=== PATIENT | female | born 1995 | race Caucasian/White ===

== ENCOUNTER 2019-10-15 20:38 | Outpatient (CLI) | payer MEDICAID ==
[2019-10-15 21:56] VITALS: BP 117/77
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
== END 2019-10-16 01:15 | disposition home or self-care (01) ==
LOC: TRG 20:38 → APU 20:50 → TRG 10-16 01:15
PROVIDERS: ATTEND Obstetrics & Gynecology
DX: O26.892 Other specified pregnancy related conditions, second trimester (principal); V89.2XXA Person injured in unspecified motor-vehicle accident, traffic, initial encounter; Y93.89 Activity, other specified; Y92.89 Other specified places as the place of occurrence of the external cause; Y99.8 Other external cause status; Z3A.27 27 weeks gestation of pregnancy
CPT/HCPCS: 59025; 76815

== ENCOUNTER 2019-11-28 20:25 | Outpatient (CLI) | payer MEDICAID ==
[2019-11-28 21:03] VITALS: BP 112/70
== END 2019-11-28 21:50 | disposition home or self-care (01) ==
LOC: TRG 20:25 → APU 20:26 → TRG 21:50
PROVIDERS: ATTEND Obstetrics & Gynecology
DX: O42.913 Preterm premature rupture of membranes, unspecified as to length of time between rupture and onset of labor, third trimester (principal); Z3A.34 34 weeks gestation of pregnancy
CPT/HCPCS: 59025

== ENCOUNTER 2019-12-16 17:09 | Outpatient (CLI) | payer MEDICAID ==
[2019-12-16] MEDS ORDERED: LACTATED RINGERS 1,000 ML IV SCH (18:00)
[2019-12-16 18:03] LABS: Bilirubin,Urine NEG (Negative); Blood,Urine MOD (Negative); Color,Urine Yellow (Yellow); Protein,Urine <15 mg/dL mg/dL (Negative); Urobilinogen,Urine < 2.0 mg/dL (<2.0)
[2019-12-16 18:09] LABS: Amphetamine Screen,Urine PRESUMPTIVE NEGATIVE; Benzodiazepines Screen,Urine PRESUMPTIVE NEGATIVE; Cannabinoid Screen,Urine PRESUMPTIVE NEGATIVE; Cocaine Screen,Urine PRESUMPTIVE NEGATIVE; Methadone Screen,Urine PRESUMPTIVE NEGATIVE; Opiate Screen,Urine PRESUMPTIVE NEGATIVE
[2019-12-16 18:11] VITALS: BP 126/73
== END 2019-12-16 19:47 | disposition home or self-care (01) ==
LOC: TRG 17:09 → APU 17:10 → TRG 19:47
PROVIDERS: ATTEND Obstetrics & Gynecology
DX: O26.853 Spotting complicating pregnancy, third trimester (principal); O26.893 Other specified pregnancy related conditions, third trimester; R25.2 Cramp and spasm; Z3A.36 36 weeks gestation of pregnancy
CPT/HCPCS: 59025; 80307; 81001; 87086; 96360; 96361; J7120

== ENCOUNTER 2019-12-27 15:03 | Inpatient (IN) | payer MEDICAID ==
[2019-12-27] MEDS ORDERED: LACTATED RINGERS 1,000 ML ONE (16:08)
[2019-12-27] MEDS ORDERED: MINERAL OIL 30 ML ORAL LIQD PO PRN (16:18)
[2019-12-27] MEDS ORDERED: ePHEDrine SULFATE 50 MG/1 ML INJ IV PRN ×2 (16:18→19:03)
[2019-12-27] MEDS ORDERED: fentaNYL 100 MCG/2 ML INJ IV PRN (16:18)
[2019-12-27] MEDS ORDERED: TERBUTALINE 1 MG/1 ML INJ SUB-Q PRN (16:18)
--- NOTE | 2019-12-27 16:26 | History and Physical Report ---
History of Present Illness Date of examination: 12/27/19 Date of admission: 12/27/2019 Chief complaint: Labor History of present illness: 24 year old presents with contractions; complains of contractions for past 2 days. Denies LOF or VB. Patient received care at [facility]; no prenantal records are available. EDC 01/09/2020 per patient report. Patient states fetus had pericardial effusion and EIF (states pericardial effusion resolved but EIF did not). labs were drawn upon admission. Patient presented records after she was admitted and the following information was obtained from these records: She was seeing Dr. Malini Brasher and [facility]. LMP 04/04/2019. EDC 01/09/2020. Problems: alpha thalassemia carrier, history of chlamydia treated, EIF (normal echo). labs: A+, antibody screen negative, RPR nonreactive, HIV negative, hepatitis B surface antigen negative, gonorrhea negative, chlamydia negative, rubella immune, 1 hour sugar test 100, AFP negative, GBS negative, hemoglobin electrophoresis AA, pap smear negative. Past History Past Medical History: other (obesity) Past Surgical History: no surgical history [facility] ATT[facility]NEY History: denies: chlamydia, gonorrhea, hepatitis B, hepatitis C, herpes, HIV, syphilis, trichomonas Family/Genetic History: diabetes Social history: full code. denies: smoking, alcohol abuse, prescription drug abuse, IV drug use - Obstetrical History Expected Date of Delivery: 01/09/20 Actual Gestation: 38 Week(s) 1 Day(s) : 2 Para: 0 Hx # Term Pregnancies: 0 Number of Pregnancies: 0 Spontaneous Abortions: 0 Induced : 1 Number of Living Children: 0 Medications and Allergies Allergies Allergy/AdvReac Type Severity Reaction Status Date / Time No Known Allergies Allergy Verified 12/27/19 15:34 Home Medications Medication Instructions Recorded Confirmed Last Taken Type Iron 1 tab PO QDAY 10/15/19 12/27/19 10/15/19 10:00 History Vitamin 1 tab PO QDAY 10/15/19 12/27/19 12/27/19 04:00 History metroNIDAZOLE VAGINAL 0.75% gel 1 applic VG HS 12/27/19 12/27/19 12/26/19 21:00 History Active Meds: Active Medications Ephedrine Sulfate (Ephedrine Sulfate) 10 mg IV Q2M PRN PRN Reason: Hypotension Fentanyl (Sublimaze) 100 mcg IV Q2H PRN PRN Reason: Pain,Severe (7-10) LABOR PAIN Oxytocin/Sodium Chloride (Pitocin/Ns 30 Unit/500ml) 30 units in 500 mls @ 2 mls/hr IV TITR FRED; Protocol Lactated Ringer's (Lactated Ringers) 1,000 mls @ 125 mls/hr IV DIRECT FRED Oxytocin/Sodium Chloride (Pitocin/Ns 30 Unit/500ml) 30 units in 500 mls @ 40 mls/hr IV TITR FRED; Protocol Ampicillin Sodium (Ampicillin/Ns 2 Gm/100 Ml) 2 gm in 100 mls @ 100 mls/hr IV ONCE ONE; Protocol Stop: 12/27/19 17:29 Ampicillin Sodium (Ampicillin/Ns 1 Gm/50 Ml) 1 gm in 50 mls @ 100 mls/hr IV Q4H FRED; Protocol Lidocaine (Xylocaine 2%) 20 ml INFILTRATI ONCE ONE Stop: 12/27/19 16:19 Mineral Oil (Mineral Oil) 30 ml PO QHS PRN PRN Reason: Constipation Terbutaline Sulfate (Brethine) 0.25 mg SUB-Q ONCE PRN PRN Reason: Hyperstimulation/Hypertonicity Review of Systems All systems: negative (contractions) - Vital Signs Vital signs: Vital Signs Pulse BP Pulse Ox 90 123/81 98 12/27/19 15:29 12/27/19 15:29 12/27/19 15:29 Temp Pulse Resp BP Pulse Ox 99.0 F 83 20 123/81 97 12/27/19 15:30 12/27/19 16:19 12/27/19 15:30 12/27/19 15:30 12/27/19 16:19 - Physical Exam Abdomen: Positive: normal appearance, soft. Negative: distention, tenderness, guarding, rigidity Genitourinary (Female): Positive: normal external genitalia, normal perenium. Negative: perineal/vulvar lesions (no lesions seen on careful exam with bright light upon admission) Vagina: Positive: normal moisture Uterus: Positive: enlarged. Negative: tender Anus/Rectum: Positive: normal perianal skin Extremities: Positive: normal, edema (pedal edema bilaterally). Negative: tend erness - Obstetrical Cervical Dilatation: 5 Cervical Effacement Percentage: 80 station: -2 Uterine Contraction Pattern: Regular Uterine Contraction Intensity: Moderate Results All other labs normal. Assessment and Plan A: at 38 weeks, 1 day gestation. Active labor. P: Admit. EFM. Epidural if desired.
[2019-12-27] MEDS ORDERED: AMPICILLIN/NS 2 GM/100 ML 2 GM/100 ML BAG IV ONE (16:30)
[2019-12-27 16:46] LABS: Bacteria,Urine 1+ /HPF (Negative); Bilirubin,Urine NEG (Negative); Blood,Urine MOD (Negative); Color,Urine Yellow (Yellow); Mucus,Urine FEW /HPF; Urobilinogen,Urine < 2.0 mg/dL (<2.0)
[2019-12-27 16:47] LABS: Amphetamine Screen,Urine PRESUMPTIVE NEGATIVE; Benzodiazepines Screen,Urine PRESUMPTIVE NEGATIVE; Cannabinoid Screen,Urine PRESUMPTIVE NEGATIVE; Cocaine Screen,Urine PRESUMPTIVE NEGATIVE; Methadone Screen,Urine PRESUMPTIVE NEGATIVE; Opiate Screen,Urine PRESUMPTIVE NEGATIVE
[2019-12-27] MEDS ORDERED: LIDOCAINE (2%) 20 MG/1 ML VIAL 20 ML MDV INFILTRATI ONE ×2 (17:00→19:39)
[2019-12-27] MEDS ORDERED: LACTATED RINGERS 1,000 ML IV SCH (17:00)
[2019-12-27] MEDS ORDERED: OXYTOCIN DRIP 30 UNITS/500 ML BAG IV SCH ×2 (17:00)
[2019-12-27 17:33] LABS: Hematocrit 35.8 % (30.3-42.9); Mean Corpuscular HGB Conc 34 % (30-34); Mean Corpuscular Volume 84 fl (79-97); Platelet Count 193 K/mm3 (140-440); Red Blood Count 4.25 M/mm3 (3.65-5.03); Red Cell Distribution Width 12.7 % (13.2-15.2)
[2019-12-27] MEDS ORDERED: fentaNYL-BUPIV 2 MCG/ML-0.125% 200 MCG/100 ML BAG EPIDURAL ONE (17:53)
[2019-12-27 17:59] LABS: Hepatitis C Virus Antibody Non-Reactive (NonReactive)
[2019-12-27] MEDS ORDERED: DEXMEDETOMIDINE 200 MCG/2 ML VIAL IV ONE (18:21)
[2019-12-27] MEDS ORDERED: NALOXONE 2 MG/2 ML INJ IV PRN (19:03)
--- NOTE | 2019-12-27 19:06 | Anesthesia Consultation ---
Anesthesia Consult and Med Hx Date of service: 12/27/19 - Airway Anesthetic Teeth Evaluation: Good ROM Head & Neck: Adequate Mental/Hyoid Distance: Adequate Mallampati Class: Class II Intubation Access Assessment: Possibly Difficult - Pulmonary Exam CTA: Yes - Cardiac Exam Cardiac Exam: RRR - Pre-Operative Health Status ASA Pre-Surgery Classification: ASA2 Proposed Anesthetic Plan: Epidural - Pulmonary Hx Smoking: No Hx Asthma: No Hx Respiratory Symptoms: No SOB: No COPD: No Home Oxygen Therapy: No Hx Pneumonia: No Hx Sleep Apnea: No - Cardiovascular System Hx Hypertension: No Hx Coronary Artery Disease: No Hx Heart Attack/AMI: No Hx Angina: No Hx Percutaneous Transluminal Coronary Angioplasty (PTCA): No Hx Cardia Arrhythmia: No Hx Pacemaker: No Hx Internal Defibrillator: No Hx Valvular Heart Disease: No Hx Heart Murmur: No Hx Peripheral Vascular Disease: No - Central Nervous System Hx Neuromuscular Disorder: No Hx Seizures: No CVA: No Hx Back Pain: No Hx Psychiatric Problems: No - Gastrointestinal Hx Ulcer: No Hx Gastroesophageal Reflux Disease: No - Endocrine Hx Renal Disease: No Hx End Stage Renal Disease: No Hx Cirrhosis: No Hx Liver Disease: No Hx Insulin Dependent Diabetes: No Hx Hypothyroidism: No Hx Hyperthyroidism: No - Hematic Hx Anemia: Yes Hx Sickle Cell Disease: No - Other Systems Hx Alcohol Use: No Hx Substance Use: No Hx Cancer: No Hx Obesity: Yes
[2019-12-27] MEDS ORDERED: fentaNYL-BUPIV 2 MCG/ML-0.125% 200 MCG/100 ML BAG EPIDURAL SCH (20:00)
--- NOTE | 2019-12-27 20:06 | Progress Note ---
Labor Epidural - Labor Epidural Start Time: 18:29 Stop Time: 18:46 Performed by:: CHUN GRAVES Procedure: Patient is requesting a laboring epidural for laboring pain. Patient IDed, H&P reviewed, all questions and concerns were answered, and consent was signed. Timeout was performed at bedside. Patient in sitting position. Sterile prep and drape was performed. [5] ml of 1% lidocaine skin wheal at L[4]- L [5]. 18- gauge Tuohy epidural needle was advanced to loss of resistance with air technique to 7cm, 27g spinal needle with clear CSF, however patient c/o right side paresthesia. Spinal and Tuohy needle remaved. 2nd attempt, loss Of resistance with air to 7cm, negative paresthesia, negative CSF, negative blood. Epidural catheter advanced to [11] centimeters. [NEGATIVE] Aspiration [NEGATIVE] test dose. Sterile dressing applied. Patient tolerated procedure.
[2019-12-27] MEDS ORDERED: AMPICILLIN/NS 1 GM/50 ML 1 GM/50 ML BAG IV SCH (20:30)
[2019-12-27] MEDS ORDERED: WITCH HAZEL/ GLYCERIN PAD TP PRN (21:59)
[2019-12-27] MEDS ORDERED: HYDROcodone/ACETAMINOPHEN 5-325 MG TAB PO PRN (21:59)
--- NOTE | 2019-12-27 22:08 | Procedure Note ---
OB Delivery Note - Delivery Date of Delivery: 12/27/19 Surgeon: JANELLE MONTAGUE Estimated blood loss: 200cc - Vaginal Delivery presentation: vertex Delivery position: OP Intrapartum events: none Delivery induction: none Delivery augmentation: rupture of membranes Delivery monitor: external FHT, external uterine Route of delivery: Delivery placenta: spontaneous Delivery cord: 3 umbilical vessels Episiotomy: none Delivery laceration: none Anesthesia: epidural Delivery comments: Spontaneous vaginal delivery at 21:44 of liveborn female weighing 6 lb. 4 oz. over intact perinuem with apgars of 8/9. Atraumatic delivery of baby; no nuchal cord. Baby placed skin to skin with mom after delivery. Spontaneous cry and respirations. Baby dried with warm blankets and suctioned with bulb syringe. 3 vessel cord double clamped and cut (delayed clamping). Spontaneous delivery of intact placenta and membranes by scherer mechanism. EBL 200 cc. Pitocin to IV fluids after delivery of placenta. Fundus firm and midline. No lacerations noted. Sponge count correct. Mother and baby stable.
[2019-12-28] MEDS: IBUPROFEN 600 MG TAB PO SCH ×3 (06:09→17:50)
--- NOTE | 2019-12-28 07:00 | Post Anesthesia Evaluation ---
- Post Anesthesia Evaluation Patient Participated: Yes Airway Patent: Yes Stable Respiratory Function: Yes Nausea/Vomiting: No Temp > 96.8F: Yes Pain Manageable: Yes Adequeate Hydration: Yes Anesthesia Complications: No Block Receding Appropriately: Yes Patient on Ventilator: No
[2019-12-28 10:13] LABS: Hematocrit 28.9 % (30.3-42.9); Hemoglobin 9.7 gm/dl (10.1-14.3)
--- NOTE | 2019-12-28 11:46 | Progress Note ---
Assessment and Plan A: Day 1 Stable P: Follow routine orders. D/c in the am. Subjective - Subjective Date of service: 12/28/19 Principal diagnosis: IUP at term delivered Patient reports: appetite normal, voiding normally, pain well controlled, flatus, ambulating normally : doing well, bottle feeding (and ) Objective - Vital Signs Latest vital signs: Vital Signs Temp Pulse Resp BP BP Pulse Ox 12/28/19 08:55 98.4 F 75 18 105/54 12/28/19 08:29 20 12/28/19 05:27 98.7 F 91 H 18 102/62 98 12/28/19 01:20 99.2 F 90 18 119/76 99 12/28/19 00:46 102 H 115/64 99 12/28/19 00:41 81 120/66 99 12/28/19 00:36 79 119/61 100 12/28/19 00:31 80 116/56 100 12/28/19 00:26 74 115/61 99 12/28/19 00:21 79 115/61 100 12/28/19 00:16 84 115/61 99 12/28/19 00:11 79 116/62 100 12/28/19 00:06 84 114/60 100 12/28/19 00:01 81 117/61 98 12/27/19 23:56 83 113/61 98 12/27/19 23:51 76 116/56 100 12/27/19 23:46 80 116/60 100 12/27/19 23:41 88 123/65 99 12/27/19 23:37 81 118/59 12/27/19 23:36 82 99 12/27/19 23:31 70 117/59 100 12/27/19 23:26 65 120/57 100 12/27/19 23:21 80 128/62 99 12/27/19 23:17 85 118/59 12/27/19 23:16 75 99 12/27/19 23:11 66 121/61 97 12/27/19 23:06 68 125/60 100 12/27/19 23:01 76 125/61 98 12/27/19 22:56 73 118/60 97 12/27/19 22:53 80 91 12/27/19 22:52 64 110/59 12/27/19 22:51 69 98 12/27/19 22:46 74 130/53 97 12/27/19 22:41 70 121/59 98 12/27/19 22:36 65 126/76 99 12/27/19 22:31 71 115/62 99 12/27/19 22:26 78 117/60 98 12/27/19 22:21 77 118/64 99 12/27/19 22:16 79 109/67 99 12/27/19 22:11 79 125/52 100 12/27/19 22:06 81 125/60 99 12/27/19 22:01 85 125/68 99 12/27/19 21:57 86 137/59 12/27/19 21:56 89 100 12/27/19 21:52 120 H 151/72 12/27/19 21:51 99.2 F 103 H 18 151/72 99 12/27/19 21:46 103 H 105/53 12/27/19 21:42 116 H 140/77 12/27/19 21:38 149 H 98 12/27/19 21:37 120 H 121/81 12/27/19 21:33 137 H 97 12/27/19 21:31 141 H 132/73 12/27/19 21:28 102 H 125/66 98 12/27/19 21:27 80 89 12/27/19 21:23 98 H 98 12/27/19 21:18 110 H 96 12/27/19 21:17 110 H 117/67 12/27/19 21:13 84 99 12/27/19 21:11 63 100/54 12/27/19 21:08 61 98 12/27/19 21:07 61 98/53 12/27/19 21:04 18 12/27/19 21:03 63 98 12/27/19 21:01 60 112/59 12/27/19 20:58 65 99 12/27/19 20:56 71 111/59 12/27/19 20:53 62 110/52 99 12/27/19 20:48 61 97 12/27/19 20:46 68 107/58 12/27/19 20:43 66 98 12/27/19 20:41 67 109/64 12/27/19 20:38 69 99 12/27/19 20:37 79 110/71 12/27/19 20:33 68 98 12/27/19 20:31 67 109/59 12/27/19 20:28 72 100 12/27/19 20:27 67 111/55 12/27/19 20:23 79 100 12/27/19 20:22 63 108/64 12/27/19 20:18 70 100 12/27/19 20:13 88 100 12/27/19 20:08 78 99 12/27/19 20:03 70 99 12/27/19 20:01 78 113/54 12/27/19 19:58 73 100 12/27/19 19:57 200 H 114/69 12/27/19 19:53 74 120/59 99 12/27/19 19:48 72 100 12/27/19 19:46 74 110/60 12/27/19 19:44 71 110/69 12/27/19 19:43 71 100 12/27/19 19:38 80 100 12/27/19 19:33 78 100 12/27/19 19:32 83 123/64 12/27/19 19:28 93 H 99 12/27/19 19:23 83 100 12/27/19 19:21 84 115/54 12/27/19 19:18 78 100 12/27/19 19:16 72 117/63 12/27/19 19:15 98.7 F 12/27/19 19:14 79 99 12/27/19 19:11 200 H 113/87 12/27/19 19:08 83 99 12/27/19 19:04 82 99 12/27/19 18:59 92 H 99 12/27/19 18:57 81 125/57 12/27/19 18:53 101 H 100 12/27/19 18:52 105/77 12/27/19 18:48 78 99 12/27/19 18:46 65 138/79 12/27/19 18:43 76 99 12/27/19 18:39 89 99 12/27/19 18:36 71 138/76 12/27/19 18:34 73 99 12/27/19 18:28 105 H 98 12/27/19 18:23 98 12/27/19 18:05 68 110/55 12/27/19 17:30 97.6 F 16 12/27/19 17:07 84 142/71 12/27/19 16:58 80 155/99 12/27/19 16:19 83 97 12/27/19 16:14 85 99 12/27/19 16:09 83 98 12/27/19 16:04 75 98 12/27/19 15:59 79 98 12/27/19 15:54 81 97 12/27/19 15:49 84 99 12/27/19 15:44 78 98 12/27/19 15:39 75 99 12/27/19 15:34 84 99 12/27/19 15:30 99.0 F 90 20 123/81 98 12/27/19 15:29 90 123/81 98 Intake and Output 12/27/19 12/28/19 12/28/19 22:59 06:59 14:59 Intake Total 240 320 Output Total 307 1200 Balance -307 -960 320 Intake: Oral 320 Intake, Free Water 240 Output: Urine 300 1200 Self-Catheterization 400 Uretheral (Victor) 300 Void 800 Emesis 7 Other: Total, Intake Amount 320 Total, Output Amount 2 200 # Voids Void 1 1 Weight 88.904 kg - Exam Breasts: Present: normal Cardiovascular: Present: Regular rate, Normal S1, Normal S2 Lungs: Present: Clear to auscultation, Normal air movement Abdomen: Present: normal appearance, soft, normal bowel sounds Uterus: Present: normal, firm, fundal height below umbilicus Extremities: Present: normal - Labs Labs: Abnormal lab results 12/27/19 12/28/19 Range/Units 17:07 09:33 WBC 11.2 H (4.5-11.0) K/mm3 Hgb 9.7 L (10.1-14.3) gm/dl Hct 28.9 L D (30.3-42.9) % RDW 12.7 L (13.2-15.2) %
--- NOTE | 2019-12-28 11:48 | Discharge Summary ---
Providers - Providers Date of Admission: 12/27/19 15:04 Date of discharge: 12/29/19 Attending physician: BEBE CHEN MD Primary care physician: BEBE CHEN MD Hospitalization Reason for admission: IUP at term Delivery: Episiotomy: none Laceration: none Other procedures: none complications: none Discharge diagnosis: IUP at term delivered baby: female Condition at discharge: Good Disposition: DC-01 TO HOME OR SELFCARE Plan - Provider Discharge Summary Activity: routine, no sex for 6 weeks, no heavy lifting 4 weeks, no strenuous exercise Diet: routine Instructions: routine Additional instructions: [] Smoking cessation referral if applicable(refer to patient education folder for contact #) [] Refer to [facility]'s [facility] Booklet Call your doctor immediately for: * Fever > 100.5 * Heavy vaginal bleeding ( >1 pad per hour) * Severe persistent headache * Shortness of breath * Reddened, hot, painful area to leg or breast * Drainage or odor from incision. * Keep incision clean and dry at all times and follow doctor's instructions regarding bathing/showering - Follow up plan Follow up: BEBE CHEN MD [Primary Care Provider] - 6 Weeks
[2019-12-29] MEDS: IBUPROFEN 600 MG TAB PO SCH ×2 (00:02→05:30)
[2019-12-29 17:54] VITALS: BP 124/79
== END 2019-12-29 18:02 | disposition home or self-care (01) | DRG 775 ==
LOC: TRG 15:03 → APU 15:03 → LD 15:04 → TRG 16:00 → OB 12-28 01:15
PROVIDERS: ADMIT Obstetrics & Gynecology; ATTEND Obstetrics & Gynecology
PROC: 10E0XZZ Delivery of Products of Conception, External Approach (ICD-10-PCS; principal; 2019-12-27)
PROC: 3E0R3BZ Introduction of Anesthetic Agent into Spinal Canal, Percutaneous Approach (ICD-10-PCS; 2019-12-27)
PROC: 00HU33Z Insertion of Infusion Device into Spinal Canal, Percutaneous Approach (ICD-10-PCS; 2019-12-27)
DX: O99.214 Obesity complicating childbirth (principal); Z37.0 Single live birth; Z3A.38 38 weeks gestation of pregnancy; E66.9 Obesity, unspecified; Z20.828 Contact with and (suspected) exposure to other viral communicable diseases; O99.02 Anemia complicating childbirth; D64.9 Anemia, unspecified
CPT/HCPCS: 36415; 80307; 81001; 85014; 85018; 85027; 86592; 86706; 86803; 86850; 86900; 86901; 87806; 96360; G0378; J7120; U0003

== ENCOUNTER 2019-12-31 23:33 | Observation (INO) | payer MEDICAID ==
--- NOTE | 2020-01-01 00:38 | Emergency Department Report ---
ED Abdominal Pain HPI - General Chief Complaint: Fever Stated Complaint: VAGINAL BLEEDING/POST DILIVERY 4DAYS AGO PUI?: No Time Seen by Provider: 01/01/20 00:18 Source: patient Mode of arrival: Ambulatory Limitations: No Limitations - History of Present Illness Initial Comments: Marques is a 24-year-old female that presents emergency room with complaints of lower abdominal pain, heavy vaginal bleeding and fever. Patient states that her symptoms started today. Patient states that her symptoms are worsening. Patient states that her vaginal bleeding has increased. Patient states that she is passing large clots. Patient states she had a baby 4 days ago. Patient states she is breast-feeding. Patient denies breast pain. Patient denies vaginal bleeding. Patient states she is not sexually active. Patient denies vaginal discharge. Patient denies recent travel. Patient denies recent international travel. Patient denies exposure to the novel coronavirus. Patient denies sick contacts. Patient denies cough. Patient denies diarrhea. Patient denies coming in contact with anybody with symptoms of the novel coronavirus. MD Complaint: abdominal pain -: Sudden Location: LLQ, RLQ, suprapubic Radiation: none Migration to: no migration Severity: severe Severity scale (0 -10): 10 Quality: stabbing Consistency: constant Improves With: rest Worsens With: movement Context: recent surgery/procedure Associated Symptoms: denies: nausea, vomiting, diarrhea, fever, chills, constipation, dysuria, hematemesis, hematochezia, melena, hematuria, syncope - Related Data Home Medications Medication Instructions Recorded Confirmed Last Taken Iron 1 tab PO QDAY 10/15/19 12/27/19 10/15/19 10:00 Vitamin 1 tab PO QDAY 10/15/19 12/27/19 12/27/19 04:00 metroNIDAZOLE VAGINAL 0.75% gel 1 applic VG HS 12/27/19 12/27/19 12/26/19 21:00 Allergies Allergy/AdvReac Type Severity Reaction Status Date / Time No Known Allergies Allergy Verified 12/27/19 15:34 ED Review of Systems ROS: Stated complaint: VAGINAL BLEEDING/POST DILIVERY 4DAYS AGO Other details as noted in HPI Constitutional: denies: chills, fever Eyes: denies: eye pain, eye discharge, vision change ENT: denies: ear pain, throat pain Respiratory: denies: cough, shortness of breath, wheezing Cardiovascular: denies: chest pain, palpitations Endocrine: no symptoms reported Gastrointestinal: abdominal pain. denies: nausea, diarrhea Genitourinary: as per HPI. denies: urgency, dysuria, discharge Musculoskeletal: denies: back pain, joint swelling, arthralgia Skin: denies: rash, lesions Neurological: denies: headache, weakness, paresthesias Psychiatric: denies: anxiety, depression Hematological/Lymphatic: denies: easy bleeding, easy bruising ED Past Medical Hx - Past Medical History Previous Medical History?: Yes Hx Hypertension: No Hx Heart Attack/AMI: No Hx Diabetes: No Hx Deep Vein Thrombosis: No Hx Liver Disease: No Hx Renal Disease: No Hx Sickle Cell Disease: No Hx Seizures: No Hx Asthma: No Hx COPD: No Hx HIV: No Additional medical history: Anemia - Surgical History Past Surgical History?: No Hx Pacemaker: No Hx Internal Defibrillator: No - Family History Family history: no significant - Social History Smoking Status: Never Smoker Substance Use Type: None - Medications Home Medications: Home Medications Medication Instructions Recorded Confirmed Last Taken Type Iron 1 tab PO QDAY 10/15/19 12/27/19 10/15/19 10:00 History Vitamin 1 tab PO QDAY 10/15/19 12/27/19 12/27/19 04:00 History metroNIDAZOLE VAGINAL 0.75% gel 1 applic VG HS 12/27/19 12/27/19 12/26/19 21:00 History ED Physical Exam - General Limitations: No Limitations General appearance: alert, in no apparent distress - Head Head exam: Present: atraumatic, normocephalic - Eye Eye exam: Present: normal appearance - ENT ENT exam: Present: mucous membranes moist - Neck Neck exam: Present: normal inspection - Respiratory Respiratory exam: Present: normal lung sounds bilaterally. Absent: respiratory distress - Cardiovascular Cardiovascular Exam: Present: regular rate, normal rhythm. Absent: systolic murmur, diastolic murmur, rubs, gallop - GI/Abdominal GI/Abdominal exam: Present: soft, tenderness (Bilateral lower quadrant tenderness.), normal bowel sounds - Extremities Exam Extremities exam: Present: normal inspection - Back Exam Back exam: Present: normal inspection - Neurological Exam Neurological exam: Present: alert, oriented X3 - Psychiatric Psychiatric exam: Present: normal affect, normal mood - Skin Skin exam: Present: warm, dry, intact, normal color. Absent: rash ED Course Vital Signs 01/01/20 01/01/20 00:01 03:17 Temperature 101.4 F H Pulse Rate 107 H Respiratory 16 18 Rate Blood Pressure 141/83 O2 Sat by Pulse 97 Oximetry - Reevaluation(s) Reevaluation #1: I discussed all results with patient. I discussed plan of care with patient. Patient agrees with plan of care and admission. Patient to be admitted to the ESTHETICIAN service. 01/01/20 01:57 Reevaluation #2: Patient complaining of increased pain. Patient also complaining of nausea. Patient will be given Dilaudid and Zofran. 01/01/20 02:20 - Consultations Consultation #1: I discussed the case with Dr. Carmen, ESTHETICIAN. Dr. Carmen wants patient to be admitted to mother-baby. Bridge orders placed. 01/01/20 01:57 ED Medical Decision Making - Lab Data Result diagrams: 01/01/20 00:40 01/01/20 00:40 - Radiology Data Radiology results: report reviewed Transvaginal pelvic ultrasound with Doppler INDICATION: vaginal bleeding and fever FINDINGS: The uterus is and appearance measuring 15 x 10 x 10 cm. There is a moderate amount of heterogeneous material within the endometrial canal. On the provided Doppler images there may be a small amount of increased Doppler flow. Neither ovary was identified from overlying bowel gas. No large free pelvic fluid appreciated IMPRESSION: Moderate amount of heterogeneous material within the endometrial canal. Much of this material may represent clot however on several Doppler images there may be a small amount of residual flow. Retained products of conception cannot be completely excluded. Recommend short-term ultrasound for further evaluation. . - Medical Decision Making Patient is a 24-year-old female that presents emergency room with complaints of lower abdominal pain, heavy vaginal bleeding and fever. Patient is 4 days. Patient clinical findings are most likely secondary to endometrial-itis. Patient had labs done which showed an elevated WBC and a UTI. Patient had a transvaginal ultrasound. Patient admitted to the ESTHETICIAN service, Dr. Carmen. Dr. Ocampo recommended gent and clindamycin. Patient was given Tylenol for fever. Patient was given Dilaudid and Zofran for pain and nausea. Patient was admitted to the mother-baby floor. - Differential Diagnosis Endometritis, UTI, fever, abdominal pain, fever Critical Care Time: Yes Critical care time in (mins) excluding proc time.: 35 Critical care attestation.: If time is entered above; I have spent that time in minutes in the direct care of this critically ill patient, excluding procedure time. Critical Care Time: 35 minutes ED Disposition Clinical Impression: fever, Vaginal bleeding, Endometritis Fever Qualifiers: Fever type: unspecified Qualified Code(s): R50.9 - Fever, unspecified Abdominal pain Qualifiers: Abdominal location: lower abdomen, unspecified Qualified Code(s): R10.30 - Lower abdominal pain, unspecified bleeding Qualifiers: hemorrhage type: unspecified Qualified Code(s): O72.1 - Other immediate hemorrhage UTI (urinary tract infection) Qualifiers: Urinary tract infection type: acute cystitis Hematuria presence: with hematuria Qualified Code(s): N30.01 - Acute cystitis with hematuria Disposition: OP ADMIT IP TO THIS HOSP Is pt being admited?: Yes Does the pt Need Aspirin: No Condition: Critical Time of Disposition: 02:00
[2020-01-01] MEDS ORDERED: SODIUM CHLORIDE 0.9% 1000 ML 1,000 ML IV ONE (00:39)
[2020-01-01] MEDS ORDERED: ACETAMINOPHEN 500 MG TAB PO ONE (00:39)
[2020-01-01 01:03] LABS: Basophils # (Auto) 0.1 K/mm3 (0.0-0.1); Basophils % (Auto) 0.4 % (0.0-1.8); Eosinophils # (Auto) 0.1 K/mm3 (0.0-0.4); Eosinophils % (Auto) 0.9 % (0.0-4.3); Hematocrit 32.1 % (30.3-42.9); Hemoglobin 10.4 gm/dl (10.1-14.3); Lymphocytes % (Auto) 7.3 % (13.4-35.0); Mean Corpuscular HGB Conc 33 % (30-34); Mean Corpuscular Volume 86 fl (79-97); Monocytes # (Auto) 0.5 K/mm3 (0.0-0.8); Monocytes % (Auto) 3.9 % (0.0-7.3); Platelet Count 222 K/mm3 (140-440); Red Blood Count 3.73 M/mm3 (3.65-5.03); Red Cell Distribution Width 13.1 % (13.2-15.2)
[2020-01-01 01:07] LABS: Bacteria,Urine 1+ /HPF (Negative); Bilirubin,Urine NEG (Negative); Blood,Urine LG (Negative); Color,Urine Red (Yellow); Mucus,Urine FEW /HPF
[2020-01-01] MEDS ORDERED: GENTAMICIN/NS 120MG/100ML 120 MG/100 ML BAG IV ONE (01:58)
[2020-01-01] MEDS ORDERED: CLINDAMYCIN 600 MG/50 mL 600 MG/50 ML BAG IV ONE ×2 (01:58→02:31)
[2020-01-01 02:02] LABS: Blood Urea Nitrogen 6 mg/dL (7-17); Calcium 8.9 mg/dL (8.4-10.2); Hemolysis Index 4
[2020-01-01 02:04] LABS: BUN/Creatinine Ratio 10
[2020-01-01] MEDS ORDERED: HYDROmorphone 2 MG/1 ML INJ IV ONE (02:19)
[2020-01-01] MEDS ORDERED: ONDANSETRON 4 MG/2 ML INJ IM ONE (02:20)
[2020-01-01] MEDS ORDERED: SODIUM CHLORIDE 0.9% 1000 ML 1,000 ML ONE (02:31)
[2020-01-01] MEDS ORDERED: ONDANSETRON 4 MG/2 ML INJ ONE (02:32)
[2020-01-01] MEDS ORDERED: HYDROmorphone 1 MG/1 ML INJ ONE (02:33)
[2020-01-01] MEDS ORDERED: ACETAMINOPHEN 500 MG TAB ONE (02:36)
[2020-01-01] MEDS: HYDROmorphone 1 MG/1 ML INJ IV ONE ×2 (03:08→04:01)
[2020-01-01] MEDS ORDERED: ONDANSETRON 4 MG/2 ML INJ IV ONE (03:16)
--- NOTE | 2020-01-01 04:18 | Ultrasound Report ---
Transvaginal pelvic ultrasound with Doppler INDICATION: vaginal bleeding and fever FINDINGS: The uterus is and appearance measuring 15 x 10 x 10 cm. There is a moderate amou nt of heterogeneous material within the endometrial canal. On the provided Doppler images there may b e a small amount of increased Doppler flow. Neither ovary was identified from overlying bowel gas. No large free pelvic fluid appreciated IMPRESSION: Moderate amount of heterogeneous material within the endometrial canal. Much of this mate rial may represent clot however on several Doppler images there may be a small amount of residual germain w. Retained products of conception cannot be completely excluded. Recommend short-term ultrasound for further evaluation. Signer Name: Rogelio Dumas MD Signed: 01/01/2020 4:14 AM Workstation Name: [id number]
[2020-01-01] MEDS ORDERED: ACETAMINOPHEN 325 MG TAB PO PRN (04:56)
[2020-01-01] MEDS ORDERED: LACTATED RINGERS 1,000 ML IV SCH (05:00)
[2020-01-01] MEDS: oxyCODONE /ACETAMINOPHEN 5-325MG TAB PO PRN ×2 (08:43→15:33)
[2020-01-01] MEDS: CLINDAMYCIN 300 MG/50 mL 300 MG/50 ML BAG IV SCH ×2 (12:00→21:12)
--- NOTE | 2020-01-01 12:03 | History and Physical Report ---
History of Present Illness Date of examination: 01/01/20 Date of admission: 01/01/20 02:01 Chief complaint: abdominal pain History of present illness: 25 yo now POD5 s/p uncomplicated presenting with lower abdominal pain, heavy vaginal bleeding and fever x 1 day, found to have concern for endometritis. Possible fluid collections in uterus on sono concerning for possible retained POC. Patient now improved s/p IV Abx. Past History Past Medical History: other (obesity) Past Surgical History: no surgical history Family/Genetic History: diabetes Social history: no significant social history - Obstetrical History : 2 Para: 1 Hx # Term Pregnancies: 1 Spontaneous Abortions: 1 Number of Living Children: 1 Medications and Allergies Allergies Allergy/AdvReac Type Severity Reaction Status Date / Time No Known Allergies Allergy Verified 12/27/19 15:34 Home Medications Medication Instructions Recorded Confirmed Last Taken Type Iron 1 tab PO QDAY 10/15/19 12/27/19 10/15/19 10:00 History Vitamin 1 tab PO QDAY 10/15/19 12/27/19 12/27/19 04:00 History metroNIDAZOLE VAGINAL 0.75% gel 1 applic VG HS 12/27/19 12/27/19 12/26/19 21:00 History Active Meds: Active Medications Acetaminophen (Tylenol) 650 mg PO Q6H PRN PRN Reason: Pain, Mild (1-3) Lactated Ringer's (Lactated Ringers) 1,000 mls @ 125 mls/hr IV DIRECT [facility] Clindamycin HCl (Cleocin 300 Mg/50 Ml) 300 mg in 50 mls @ 100 mls/hr IV Q8H [facility]; Protocol Gentamicin Sulfate/Sodium Chloride (Gentamicin/Ns 100 Mg/100 Ml) 100 mg in 100 mls @ 200 mls/hr IV Q8H [facility] Oxycodone/Acetaminophen (Percocet 5/325) 2 tab PO Q6H PRN PRN Reason: Pain, Moderate (4-6) Last Admin: 01/01/20 08:43 Dose: 2 tab Documented by: Review of Systems All systems: negative (expect HPI) - Vital Signs Vital signs: Vital Signs Temp Pulse Resp BP Pulse Ox 101.4 F H 107 H 16 141/83 97 01/01/20 00:01 01/01/20 00:01 01/01/20 00:01 01/01/20 00:01 01/01/20 00:01 Temp Pulse Resp BP Pulse Ox 97.8 F 80 20 130/80 99 01/01/20 07:47 01/01/20 07:47 01/01/20 08:43 01/01/20 07:47 01/01/20 07:47 - Physical Exam Abdomen: Positive: normal appearance, soft, normal bowel sounds, other (non tender) Results Result Diagrams: 01/01/20 00:40 01/01/20 00:40 Abnormal lab results 01/01/20 01/01/20 01/01/20 Range/Units 00:40 00:40 00:45 WBC 13.9 H (4.5-11.0) K/mm3 RDW 13.1 L (13.2-15.2) % Lymph % (Auto) 7.3 L (13.4-35.0) % Lymph # (Auto) 1.0 L (1.2-5.4) K/mm3 Seg Neutrophils % 87.5 H (40.0-70.0) % Seg Neutrophils # 12.2 H (1.8-7.7) K/mm3 Carbon Dioxide 19 L (22-30) mmol/L BUN 6 L (7-17) mg/dL Urine WBC (Auto) 63.0 H (0.0-6.0) /HPF All other labs normal. Assessment and Plan - Patient Problems (1) Endometritis Current Visit: Yes Status: Acute Plan to address problem: --Concern for atleast endometritis, improving on IV Abx. Decreasing vaginal bleeding and lower abdominal pain improved. --Continue Gentamicin and Clindamycin --Consider management of possible retained products of conception after 24H Abx. Monitor vaginal bleeding and other exam. --Possible UTI however possible contaminant 2/2 vaginal bleeding. UCx pending. Already on IV Abx.
[2020-01-01] MEDS ORDERED: GENTAMICIN/NS 120MG/100ML 120 MG/100 ML BAG IV SCH (14:00)
[2020-01-01] MEDS: GENTAMICIN/NS 100 MG/100 ML 100 MG/100 ML BAG IV SCH ×2 (16:00→22:04)
[2020-01-01] MEDS ORDERED: BUTALB/ACETAMINOPHEN/CAFFEINE TAB PO PRN (17:14)
[2020-01-02] MEDS: CLINDAMYCIN 300 MG/50 mL 300 MG/50 ML BAG IV SCH ×2 (05:48→13:17)
[2020-01-02] MEDS: GENTAMICIN/NS 100 MG/100 ML 100 MG/100 ML BAG IV SCH ×3 (07:00→22:27)
[2020-01-02] MEDS: oxyCODONE /ACETAMINOPHEN 5-325MG TAB PO PRN ×2 (07:08→20:23)
--- NOTE | 2020-01-02 12:49 | Progress Note ---
Assessment and Plan - Patient Problems (1) Endometritis Current Visit: Yes Status: Acute Plan to address problem: Sxs improving with Abx and her last febrile temp was around 0130. Will cont Abx until tomorrow morning and if still doing well and afebrile, will send home at that time. PT understands plan and agrees. Subjective - Subjective Date of service: 01/02/20 Interval history: PT feeling much better today since being her and being on Abx. Fever improved, abd pain resolved, VB minimized. PT only notes a migraine, which she has a history of. No CP/SOB. Objective - Vital Signs Latest vital signs: Vital Signs Temp Pulse Resp BP BP Pulse Ox 01/02/20 08:29 97.7 F 63 18 116/68 94 01/02/20 04:30 98.6 F 77 18 103/63 01/02/20 03:45 16 01/02/20 00:00 98.7 F 78 18 112/78 01/01/20 20:18 98.0 F 63 18 123/74 98 01/01/20 18:32 20 01/01/20 17:00 97.5 F L 72 18 121/80 100 Intake and Output 01/01/20 01/02/20 01/02/20 23:59 07:59 15:59 Intake Total 550 300 Balance 550 300 Intake: IV 250 CLEOCIN 300 MG/50 mL 300 50 mg In 50 ml @ 100 mls/hr IV Q8H [facility] Rx#:[id number] GENTAMICIN/NS 100 MG/100 200 ML 100 mg In 100 ml @ 200 mls/hr IV Q8H [facility] Rx#: [id number] Intake, Free Water 300 300 Other: Voiding Method Toilet # Voids 1 Void 1 - Exam Abdomen: Present: normal appearance, soft. Absent: tenderness
[2020-01-02] MEDS: CLINDAMYCIN IM SCH (21:28)
[2020-01-02] MEDS: DEXTROSE 5% IM SCH (21:28)
[2020-01-02] MEDS: WATER IM SCH (21:28)
[2020-01-03] MEDS: oxyCODONE /ACETAMINOPHEN 5-325MG TAB PO PRN (05:13)
[2020-01-03] MEDS: GENTAMICIN/NS 100 MG/100 ML 100 MG/100 ML BAG IV SCH (05:15)
[2020-01-03] MEDS: WATER IM SCH (06:05)
[2020-01-03] MEDS: CLINDAMYCIN IM SCH (06:05)
[2020-01-03] MEDS: DEXTROSE 5% IM SCH (06:05)
[2020-01-03 08:37] VITALS: BP 140/81
== END 2020-01-03 10:20 | disposition home or self-care (01) ==
LOC: ED 23:33 → OB 01-01 02:01
PROVIDERS: ADMIT Obstetrics & Gynecology; ATTEND Obstetrics & Gynecology
DX: O90.9 Complication of the puerperium, unspecified (principal); N80.9 Endometriosis, unspecified; O72.1 Other immediate postpartum hemorrhage; O86.4 Pyrexia of unknown origin following delivery; O90.81 Anemia of the puerperium; E66.9 Obesity, unspecified; N30.01 Acute cystitis with hematuria
CPT/HCPCS: 36415; 76830; 80048; 81001; 85025; 87086; 96365; 96366; 96367; 96375; 99291; G0378; J1170; J1580; J2405; J7030